=== PATIENT | female | born 1995 | race Caucasian/White ===

== ENCOUNTER → 2017-06-13 | Outpatient (REF) | payer BC ==
[2017-06-13 21:22] LABS: INFLUENZA A AMPLIFICATION NEGATIVE (NEGATIVE); INFLUENZA B AMPLIFICATION NEGATIVE (NEGATIVE)
== END ==
LOC: M SFHCLERA 18:16
DX: J02.9 Acute pharyngitis, unspecified (principal); Z20.828 Contact with and (suspected) exposure to other viral communicable diseases
CPT/HCPCS: 87502

== ENCOUNTER → 2018-06-27 | Outpatient (REF) | payer BC | LOC: M SFHCLERA 19:05 | PROVIDERS: ATTEND Physician Assistant | DX: J02.9 Acute pharyngitis, unspecified (principal) ==

== ENCOUNTER → 2018-06-30 | Outpatient (REF) | payer BC ==
[2018-06-30 13:30] LABS: LUTEINIZING HORMONE 5.1 mIU/mL; PROLACTIN 13.1 NG/ML
== END ==
LOC: M LAB REF 12:41
PROVIDERS: ATTEND Nurse Practitioner Family
DX: N92.6 Irregular menstruation, unspecified (principal)

== ENCOUNTER → 2025-01-15 | Outpatient (CLI) | payer OTHER ==
[2025-01-17 09:42] LABS: DEHYDROEPIANDROSTERONE SULFATE 111 mcg/dL (19-237)
[2025-01-17 15:03] LABS: HPV APTIMA Not Detected (Not Detected)
[2025-01-21 16:33] LABS: TESTOSTERONE FREE (DIRECT) 5.1 pg/mL (0.1-6.4); TESTOSTERONE TOTAL FOR T&D 62 ng/dL (2-45)
== END ==
LOC: M PLALAB 12:25
PROVIDERS: ATTEND Nurse Practitioner Family
DX: N92.6 Irregular menstruation, unspecified (principal); Z12.4 Encounter for screening for malignant neoplasm of cervix
CPT/HCPCS: 36415; 82627; 84146; 84402; 84403; 87624; G0123